=== PATIENT | male | born 1990 | race Two or more races ===

== ENCOUNTER 2022-04-09 14:55 | Outpatient (CLI) | payer OTHER | END 2022-04-09 15:00 | disposition home or self-care (01) | LOC: PPH VACUNA 14:55 | PROVIDERS: ATTEND Emergency Medicine Pediatric Emergency Medicine | DX: Z23 Encounter for immunization (principal) ==

== ENCOUNTER → 2023-03-19 | Outpatient (CLI) | payer OTHER | END | disposition home or self-care (01) | LOC: PPH VACUNA | PROVIDERS: ATTEND Emergency Medicine Pediatric Emergency Medicine | DX: Z23 Encounter for immunization (principal) ==

== ENCOUNTER 2023-03-24 17:02 | Emergency (ER) | payer OTHER ==
[~2023-03-24] VITALS: Ht 157.5 cm; Wt 61.2 kg
== END 2023-03-24 21:55 | disposition home or self-care (01) ==
LOC: ER 17:02
PROVIDERS: General Practice
DX: K29.70 Gastritis, unspecified, without bleeding (principal)